=== PATIENT | male | born 1950 | race Caucasian/White ===

== ENCOUNTER 2017-01-25 11:54 | Emergency (ER) | payer MEDICARE, BC ==
--- NOTE | 2017-01-25 13:00 | ED Physician Documentation ---
Male Genitourinary Problems - HISTORIAN Historian: patient, spouse - HPI Stated Complaint: ? Kidney Stone- Gone Chief Complaint: Male Genitourinary Problems Additional Information: pt has hx kidney stones-had pain rt flank and rt testicle but gone now-thinks has passeedd kidneyh stone-there is blood in urine-sy and pe neg now gonzalo probably so. will give pt rx for flomax and have increase water. he is traveling and admits dec water intake. Onset: days ago (1) Duration: gone now Context: denies: drug use, lifting, trauma Severity: other (gone now) - Associated Symptoms Problems Urinating: blood in urine, other (hi spec gravity) Penile Discharge Descripiton: denies: watery, thin Testicular Pain: none, R testicle (prev) Penile Pain: No Penile Swelling: No Inguinal Mass: No Abdominal Pain: none - Sexual History Sexual History: non-contributory - ROS CONST: none GI/: denies: nausea, vomiting MS/SKIN/LYMPH: none CVS/RESP: none EYES/ENT: none NEURO/PSYCH: denies: fainting, dizziness, tingling - PAST HX Past History: enlarged prostate (prev but not since laser tx-took flomax in past ), other (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 bph) Cardiac Disease: A-Fib Surgeries/Procedures: other (mitral valve pacemaker stent) Allergies/Adverse Reactions: Allergies Allergy/AdvReac Type Severity Reaction Status Date / Time No Known Allergies Allergy Unverified 01/25/17 11:58 Home Medications: Ambulatory Orders Medication Instructions Recorded Dofetilide [Tikosyn] 500 mcg PO DAILY 01/25/17 Metformin HCl [Glucophage] 500 mg PO [id number] 01/25/17 Metoprolol Tartrate [Lopressor] 50 mg PO BID 01/25/17 Potassium Citrate [Urocit-K] 15 meq PO DAILY 01/25/17 Simvastatin [Zocor] 40 mg PO DAILY 01/25/17 Warfarin Sodium [Warfarin Sodium] 2 mg PO DAILY 01/25/17 - SOCIAL HX Smoking History: non-smoker Alcohol Use: none Drug Use: none - FAMILY HX Family History: none - VITAL SIGNS Vital Signs: Vital Signs Temp Pulse Resp BP Pulse Ox 97.1 F L 74 18 120/68 96 01/25/17 11:54 01/25/17 13:00 01/25/17 13:00 01/25/17 13:00 01/25/17 13:00 - REVIEWED ASSESSMENTS Nursing Assessment Reviewed: Yes Vitals Reviewed: Yes ED Results Lab/Radiology - Orders Orders: ED Orders Category Date Time Status TROPONIN I (cTnI) Stat Lab 01/25/17 Ordered URINALYSIS Routine Lab 01/25/17 12:00 Ordered Male Genitourinary Problems - EXAM General Appearance: no acute distress. No: anxious Abdomen: non-tender (renal punch=neg) EENT: eye inspection normal Neck: nml inspection Respiratory: no resp distress, chest non-tender, breath sounds normal CVS: reg rate & rhythm, heart sounds normal Back: non-tender Extremities: normal range of motion, non-tender Neuro/Psych: oriented X3, cognition normal Skin: warm/dry, normal color. No: cyanosis, diaphoresis, jaundice Discharge Clincal Impression: hx gu lithiasis Referrals: Primary Doctor,No [Primary Care Provider] - 2 Days Condition: Good Disposition: 01 HOME, SELF-CARE Decision to Admit: NO Decision Time: 13:09
[2017-01-25 13:02] VITALS: BP 120/68
[2017-01-26 05:55] LABS: APPEARANCE,URINE CLEAR (CLEAR); COLOR,URINE BROWN (YELLOW); OCCULT BLOOD,URINE 3+ (NEGATIVE); PH URINE 5.5 (5.0 - 8.0)
== END 2017-01-25 13:00 | disposition home or self-care (01) ==
LOC: ED 11:54
DX: K56.49 Other impaction of intestine (principal)
CPT/HCPCS: 81002; 99283